=== PATIENT | female | born 1935 | race Caucasian/White ===

== ENCOUNTER 2016-10-03 09:52 | Day surgery (SDC) | payer MEDICARE ==
[2016-09-28 14:28] VITALS: BMI 28.4
[~2016-10-03 09:52] MED LIST: LACTATED RINGERS 1,000 ML IV SCH
[2016-10-03 10:34] VITALS: RESP 16; TEMP 97.1
[2016-10-03] MEDS ORDERED: LIDOCAINE 1% 20 ML VIAL (10MG/ML) FOR IV START INTRADERMA ONE (10:39)
[2016-10-03] MEDS ORDERED: PROPOFOL 10 MG/ML 20 ML VIAL IV ONE (10:46)
--- NOTE | 2016-10-03 11:02 | P.PCN ---
Date of Procedure: 10/03/16 Procedure(s) Performed: BRIEF HISTORY: Patient is a 81-year-old pleasant female, scheduled for an elective colonoscopy as a part of evaluation of change in bowel habits for the last 3 months duration. Lately has been having chronic constipation. Recently started on MiraLAX 1 scoop daily and symptoms are gradually improving. She denies any rectal bleeding. Last colonoscopy was more than 10 years ago. PROCEDURE PERFORMED: Colonoscopy with snare polypectomy PREOPERATIVE DIAGNOSIS: Change in bowel habits. IV sedation per Anesthesia. PROCEDURE: After informed consent was obtained, the patient, was brought into the endoscopy unit. IV conscious sedation was administered by Anesthesia under continuous monitoring. Digital rectal examination was normal. Initially the Olympus CF-160 flexible video colonoscope was then inserted in the rectum, gradually advanced into the cecum without any difficulty. Careful examination was performed as the scope was gradually being withdrawn. Ileocecal valve and the appendiceal orifice were visualized and appeared normal. Prep was excellent. Mucosa of the cecum, appeared normal. In the ascending colon there was a 1 cm polyp that was removed by snare polypectomy. The rest of the ascending colon, transverse colon, descending colon, sigmoid colon, and rectum appeared normal. Scattered sigmoid diverticulosis seen. Retroflexion was performed in the rectum and small internal hemorrhoids were seen. The patient tolerated the procedure well. IMPRESSION: 1 cm ascending colon polyp status post polypectomy. Scattered sigmoidal diverticulosis. Small internal hemorrhoids. RECOMMENDATIONS: Findings of this examination were discussed with the patient as well as a family. she was advised to follow with the biopsy results. If the biopsy shows a tubular adenoma she can have a repeat colonoscopy in 3 years.
[2016-10-03 11:27] VITALS: BP 133/80; PULSE 62
== END 2016-10-03 12:05 | disposition home or self-care (01) ==
LOC: ORWHC2ENDO 09:52
PROVIDERS: ATTEND Internal Medicine Gastroenterology
DX: D12.2 Benign neoplasm of ascending colon (principal); K57.30 Diverticulosis of large intestine without perforation or abscess without bleeding; K64.8 Other hemorrhoids; Z79.82 Long term (current) use of aspirin; Z79.899 Other long term (current) drug therapy; Z88.2 Allergy status to sulfonamides; Z88.8 Allergy status to other drugs, medicaments and biological substances
CPT/HCPCS: 88305; 45385; J2704

== ENCOUNTER → 2018-03-17 | Outpatient (CLI) | payer MEDICARE ==
[2018-03-17 09:33] LABS: Basophils % (A) 1 %; Eosinophils # (A) 0.2 k/uL (0-0.7); Eosinophils % (A) 4 %; HCT 43.3 % (34.0-46.0); HGB 13.6 gm/dL (11.4-16.0); Lymphocytes # (A) 1.9 k/uL (1.0-4.8); Lymphocytes % (A) 39 %; MCH 28.2 pg (25.0-35.0); MCHC 31.5 g/dL (31.0-37.0); MCV 89.5 fL (80.0-100.0); Mean Platelet Volume 7.4; Monocytes # (A) 0.3 k/uL (0-1.0); Monocytes % (A) 6 %; Neutrophils # (A) 2.4 k/uL (1.3-7.7); Neutrophils % (A) 48 %; Platelet Count 246 k/uL (150-450); RBC 4.83 m/uL (3.80-5.40); RDW 14.7 % (11.5-15.5)
[2018-03-17 09:54] LABS: Albumin 3.9 g/dL (3.5-5.0); Total Bilirubin 0.4 mg/dL (0.2-1.3); Total Protein 6.5 g/dL (6.3-8.2)
[2018-03-17 11:17] LABS: Erythrocyte Sedimentation Rate 5 mm/hr (0-20)
== END | disposition home or self-care (01) ==
LOC: LABWHC1 08:08
PROVIDERS: ATTEND Internal Medicine
DX: Z00.01 Encounter for general adult medical examination with abnormal findings (principal); M48.061 Spinal stenosis, lumbar region without neurogenic claudication; M81.0 Age-related osteoporosis without current pathological fracture; E55.9 Vitamin D deficiency, unspecified
CPT/HCPCS: 36415; 80053; 80061; 82306; 84443; 85025; 85652

== ENCOUNTER → 2018-03-24 | Outpatient (CLI) | payer MEDICARE ==
[~2018-03-24] MED LIST changes: +DENOSUMAB 60 MG/ML 1 ML SYRINGE SQ ONE; -LACTATED RINGERS 1,000 ML IV SCH
[2018-03-24 14:25] VITALS: BP 162/92; PULSE 75; RESP 20; TEMP 97.4
== END | disposition home or self-care (01) ==
LOC: PROCWHC3 14:08
PROVIDERS: ATTEND Internal Medicine
DX: M81.0 Age-related osteoporosis without current pathological fracture (principal)
CPT/HCPCS: 96372; J0897

== ENCOUNTER → 2018-10-14 | Outpatient (CLI) | payer MEDICARE ==
[2018-10-14 14:21] VITALS: BP 143/94; PULSE 67; RESP 16; TEMP 97.7
== END ==
LOC: PROCWHC3 13:53
PROVIDERS: ATTEND Internal Medicine
DX: M81.0 Age-related osteoporosis without current pathological fracture (principal)
CPT/HCPCS: 96372; J0897

== ENCOUNTER → 2019-04-20 | Outpatient (CLI) | payer MEDICARE ==
[2019-04-20 10:04] LABS: Basophils # (A) 0.1 k/uL (0-0.2); Basophils % (A) 1 %; Eosinophils # (A) 0.2 k/uL (0-0.7); Eosinophils % (A) 5 %; HCT 42.7 % (34.0-46.0); HGB 13.8 gm/dL (11.4-16.0); Lymphocytes # (A) 1.9 k/uL (1.0-4.8); Lymphocytes % (A) 37 %; MCH 28.8 pg (25.0-35.0); MCHC 32.4 g/dL (31.0-37.0); MCV 88.8 fL (80.0-100.0); Mean Platelet Volume 7.3; Monocytes # (A) 0.3 k/uL (0-1.0); Monocytes % (A) 6 %; Neutrophils # (A) 2.5 k/uL (1.3-7.7); Neutrophils % (A) 48 %; Platelet Count 253 k/uL (150-450); RDW 14.7 % (11.5-15.5); WBC 5.2 k/uL (3.8-10.6)
--- NOTE | 2019-04-20 12:00 | US ---
EXAMINATION TYPE: US venous doppler duplex LE LT DATE OF EXAM: 04/20/2019 9:09 AM COMPARISON: NONE CLINICAL HISTORY: 83-year-old female [id number] Acute Embolism and Thrombosis. SIDE PERFORMED: Left TECHNIQUE: The lower extremity deep venous system is examined utilizing real time linear array sonog lucretia with graded compression, doppler sonography and color-flow sonography. VESSELS IMAGED: External Iliac Vein (EIV) Common Femoral Vein Deep Femoral Vein Greater Saphenous Vein * Femoral Vein Popliteal Vein Small Saphenous Vein * Proximal Calf Veins (* superficial vessels) Left Leg: Negative for DVT IMPRESSION: No evidence for DVT within the left lower extremity imaged from the groin to the upper calf.
[2019-04-20 17:27] LABS: Albumin 4.3 g/dL (3.80-4.90); Albumin/Globulin Ratio 2.05 (1.60-3.17); Anion Gap 13.1 mmol/L (4.00-12.00); BUN/Creat Ratio 22.5 Ratio (12.00-20.00); Calcium 9.7 mg/dL (8.7-10.3); Carbon Dioxide 26.9 mmol/L (21.6-31.8); Chol/HDL Ratio 2.64; Globulin 2.1 g/dL (1.6-3.3); LDL Cholesterol,Calculated 117.8 mg/dL (0.0-131.0); Potassium 4.2 mmol/L (3.5-5.5); Total Bilirubin 0.6 mg/dL (0.2-1.2); Total Protein 6.4 g/dL (6.2-8.2); VLDL Calculation 20.2 mg/dL (5.00-40.00)
== END | disposition home or self-care (01) ==
LOC: LABWHC1 08:37
PROVIDERS: ATTEND Internal Medicine
DX: I82.409 Acute embolism and thrombosis of unspecified deep veins of unspecified lower extremity (principal); Z00.01 Encounter for general adult medical examination with abnormal findings; M81.0 Age-related osteoporosis without current pathological fracture
CPT/HCPCS: 36415; 80053; 80061; 82306; 85025

== ENCOUNTER → 2019-05-15 | Outpatient (CLI) | payer MEDICARE ==
[2019-05-15 11:33] VITALS: BP 143/83; PULSE 73; RESP 16; TEMP 98.1
== END | disposition home or self-care (01) ==
LOC: PROCWHC3 11:09
PROVIDERS: ATTEND Internal Medicine
DX: M81.0 Age-related osteoporosis without current pathological fracture (principal)
CPT/HCPCS: 96372; J0897

== ENCOUNTER → 2019-11-30 | Outpatient (CLI) | payer MEDICARE ==
[~2019-11-30] MED LIST changes: +DENOSUMAB 60 MG/ML 1 ML SYRINGE SQ NR; -DENOSUMAB 60 MG/ML 1 ML SYRINGE SQ ONE
[2019-11-30 14:08] VITALS: BP 144/75; PULSE 71; RESP 18; TEMP 97.3
== END | disposition home or self-care (01) ==
LOC: PROCWHC3 13:41
PROVIDERS: ATTEND Internal Medicine
DX: M81.0 Age-related osteoporosis without current pathological fracture (principal)
CPT/HCPCS: 96372; J0897

== ENCOUNTER → 2020-05-06 | Outpatient (CLI) | payer MEDICARE ==
[2020-05-06 09:24] LABS: Appearance,Urine Clear (Clear); Bilirubin,Urine Negative (Negative); Blood,Urine Small (Negative); Color,Urine Yellow; Glucose,Urine (UA) Negative (Negative); Ketones,Urine Negative (Negative); Leukocyte Esterase,Urine Moderate (Negative); Mucus,Urine Few /hpf; Nitrite,Urine Negative (Negative); Protein,Urine Negative (Negative); RBC,Urine 4 /hpf (0-5); Specific Gravity,Urine 1.018 (1.001-1.035); Urobilinogen,Urine <2.0 mg/dL (<2.0); WBC,Urine 3 /hpf (0-5)
[2020-05-06 09:39] LABS: Basophils % (A) 1 %; Eosinophils # (A) 0.2 k/uL (0-0.7); Eosinophils % (A) 4 %; HCT 45.3 % (34.0-46.0); HGB 14.5 gm/dL (11.4-16.0); Lymphocytes # (A) 1.8 k/uL (1.0-4.8); Lymphocytes % (A) 36 %; MCH 29.8 pg (25.0-35.0); MCHC 32.1 g/dL (31.0-37.0); MCV 93.1 fL (80.0-100.0); Mean Platelet Volume 7.5; Monocytes # (A) 0.3 k/uL (0-1.0); Monocytes % (A) 6 %; Neutrophils # (A) 2.4 k/uL (1.3-7.7); Neutrophils % (A) 50 %; Platelet Count 236 k/uL (150-450); RBC 4.86 m/uL (3.80-5.40); RDW 13.8 % (11.5-15.5); WBC 4.8 k/uL (3.8-10.6)
[2020-05-06 18:49] LABS: Erythrocyte Sedimentation Rate 7 mm/Hr (0-30)
[2020-05-06 19:31] LABS: African American GFR (CKD) 78.5 (60.0-200.0); Albumin/Globulin Ratio 1.9 (1.60-3.17); Anion Gap 7.8 mmol/L (4.00-12.00); Calcium 9.1 mg/dL (8.7-10.3); Carbon Dioxide 25.2 mmol/L (21.6-31.8); Chol/HDL Ratio 2.79; Globulin 2.1 g/dL (1.6-3.3); LDL Cholesterol,Calculated 111.2 mg/dL (0.0-131.0); Non-African American GFR(CKD) 67.7 (60.0-200.0); Potassium 4.2 mmol/L (3.5-5.5); Total Bilirubin 0.6 mg/dL (0.3-1.2); Total Protein 6.1 g/dL (6.2-8.2); VLDL Calculation 17.8 mg/dL (5.00-40.00)
== END | disposition home or self-care (01) ==
LOC: LABWHC1 08:28
PROVIDERS: ATTEND Internal Medicine
DX: Z00.01 Encounter for general adult medical examination with abnormal findings (principal); M19.90 Unspecified osteoarthritis, unspecified site; R32 Unspecified urinary incontinence; E55.9 Vitamin D deficiency, unspecified
CPT/HCPCS: 36415; 80053; 80061; 81001; 82306; 85025; 85652

== ENCOUNTER → 2020-06-02 | Outpatient (CLI) | payer MEDICARE ==
[~2020-06-02] MED LIST changes: -DENOSUMAB 60 MG/ML 1 ML SYRINGE SQ NR; +DENOSUMAB 60 MG/ML 1 ML SYRINGE SQ ONE
[2020-06-02 13:27] VITALS: BP 122/72; PULSE 76; RESP 16; TEMP 98
== END | disposition home or self-care (01) ==
LOC: PROCWHC3 12:55
PROVIDERS: ATTEND Internal Medicine
DX: M81.0 Age-related osteoporosis without current pathological fracture (principal)
CPT/HCPCS: 96372; J0897

== ENCOUNTER → 2020-12-05 | Outpatient (CLI) | payer MEDICARE ==
[~2020-12-05] MED LIST changes: +DENOSUMAB 60 MG/ML 1 ML SYRINGE SQ NR; -DENOSUMAB 60 MG/ML 1 ML SYRINGE SQ ONE
[2020-12-05 11:33] VITALS: BP 195/88; PULSE 76; RESP 16; TEMP 97.8
== END ==
LOC: PROCWHC3 11:23
PROVIDERS: ATTEND Family Medicine
DX: M81.0 Age-related osteoporosis without current pathological fracture (principal); Z87.891 Personal history of nicotine dependence
CPT/HCPCS: 96372; J0897

== ENCOUNTER → 2021-05-30 | Outpatient (CLI) | payer MEDICARE ==
[2021-05-30 19:50] LABS: HCT 45.8 % (37.2-46.3); HGB 14.1 g/dL (12.0-15.0); MCH 28.6 pg (27.0-32.0); MCHC 30.8 g/dL (32.0-37.0); MCV 92.9 fL (80.0-97.0); Mean Platelet Volume 10.9 fL (9.5-12.2); Platelet Count 291 X 10*3/uL (140-440); RBC 4.93 X 10*6/uL (4.10-5.20); RDW 14.1 % (11.5-14.5); WBC 6.16 X 10*3/uL (4.50-10.00)
[2021-05-30 20:10] LABS: African American GFR (CKD) 77.9 (60.0-200.0); Albumin 4.5 g/dL (3.8-4.9); Albumin/Globulin Ratio 1.96 (1.60-3.17); Anion Gap 13.2 mmol/L (4.00-12.00); Calcium 9.3 mg/dL (8.7-10.3); Carbon Dioxide 24.8 mmol/L (21.6-31.8); Chol/HDL Ratio 2.86 Ratio; Globulin 2.3 g/dL (1.6-3.3); HDL Cholesterol 72.8 mg/dL (40.00-60.00); LDL Cholesterol,Calculated 117.6 mg/dL (0.0-131.0); Non-African American GFR(CKD) 67.2 (60.0-200.0); Potassium 4.4 mmol/L (3.5-5.5); Total Bilirubin 0.5 mg/dL (0.30-1.20); Total Protein 6.8 g/dL (6.2-8.2); VLDL Calculation 17.6 mg/dL (5.00-40.00)
== END | disposition home or self-care (01) ==
LOC: LABWHC1 08:34
PROVIDERS: ATTEND Family Medicine
DX: Z00.01 Encounter for general adult medical examination with abnormal findings (principal)
CPT/HCPCS: 36415; 80053; 80061; 82306; 85027

== ENCOUNTER → 2021-06-12 | Outpatient (CLI) | payer MEDICARE ==
[~2021-06-12] MED LIST changes: -DENOSUMAB 60 MG/ML 1 ML SYRINGE SQ NR; +DENOSUMAB 60 MG/ML 1 ML SYRINGE SQ ONE
[2021-06-12 11:15] VITALS: BP 155/89; PULSE 76; RESP 16; TEMP 97.6
== END ==
LOC: PROCWHC3 10:39
PROVIDERS: ATTEND Family Medicine
DX: M81.0 Age-related osteoporosis without current pathological fracture (principal); Z88.2 Allergy status to sulfonamides; Z88.1 Allergy status to other antibiotic agents; Z87.891 Personal history of nicotine dependence
CPT/HCPCS: 96372; J0897

== ENCOUNTER → 2022-06-04 | Outpatient (CLI) | payer MEDICARE ==
[~2022-06-04] MED LIST changes: +DENOSUMAB 60 MG/ML 1 ML SYRINGE SQ NR; -DENOSUMAB 60 MG/ML 1 ML SYRINGE SQ ONE
[2022-06-04 09:44] VITALS: BP 171/88; PULSE 73; RESP 16; TEMP 97.6
== END ==
LOC: PROCWHC3 09:27
PROVIDERS: ATTEND Family Medicine
DX: M81.0 Age-related osteoporosis without current pathological fracture (principal); Z88.2 Allergy status to sulfonamides; Z87.891 Personal history of nicotine dependence; Z88.1 Allergy status to other antibiotic agents
CPT/HCPCS: 96372; J0897

== ENCOUNTER 2022-07-02 14:43 | Emergency (ER) | payer MEDICARE ==
[2022-07-02] MEDS ORDERED: DEXAMETHASONE SOD PHOSPHATE 10 MG/ML 1 ML VIAL IM STA (15:25)
[2022-07-02] MEDS ORDERED: KETOROLAC 15 MG/ML 1 ML VIAL IM STA (15:25)
--- NOTE | 2022-07-02 16:00 | ED ---
General Adult HPI - General Chief complaint: ENT Stated complaint: Sore throat, coughing Time Seen by Provider: 07/02/22 15:15 Source: patient Mode of arrival: ambulatory Limitations: no limitations - History of Present Illness Initial comments: Patient is an 87-year-old female presenting with chief complaint of sore throat. Patient states that she had mild sore throat 3 days ago, however last night it started worsening. She admits to odynophagia. No difficulty breathing. No cough, congestion, fever, chills, chest pain, weakness, sinus pain, ear pain, abdominal pain, nausea, vomiting. Patient took an aspirin which gave minimal relief. Patient states that otherwise she feels well. - Related Data Home Medications Medication Instructions Recorded Confirmed Calcium Citrate 1 tab PO DAILY 11/30/19 06/12/21 Mirabegron [Myrbetriq] 1 tab PO 06/04/22 Previous Rx's Medication Instructions Recorded methylPREDNISolone Dose Pack 4 mg PO DIRECTED #1 packet 07/02/22 [Medrol Dose Pack] Allergies Allergy/AdvReac Type Severity Reaction Status Date / Time rofecoxib [From Vioxx] Allergy Rash/Hives Verified 06/04/22 09:40 sulfamethoxazole Allergy shakes Verified 06/04/22 09:40 [From Bactrim] tetracycline [Tetracycline] Allergy shakes Verified 06/04/22 09:40 trimethoprim [From Bactrim] Allergy shakes Verified 06/04/22 09:40 Review of Systems ROS Statement: Those systems with pertinent positive or pertinent negative responses have been documented in the HPI. ROS Other: All systems not noted in ROS Statement are negative. Past Medical History Past Medical History: Asthma, Eye Disorder, Hyperlipidemia, Osteoarthritis (OA) Additional Past Medical History / Comment(s): spinal stenosis, glaucoma, constipation, change in bowel movement, urinary incontinence History of Any Multi-Drug Resistant Organisms: None Reported Past Surgical History: Breast Surgery, Joint Replacement Additional Past Surgical History / Comment(s): D&C, vaginal polyp removed, (benign) breast lumpectomy, rt hip replacement. left knee surgery. cataracts removed. Past Anesthesia/Blood Transfusion Reactions: No Reported Reaction Past Psychological History: No Psychological Hx Reported Smoking Status: Never smoker - Past Family History Mother Family Medical History: No Reported History General Exam Limitations: no limitations General appearance: alert, in no apparent distress Head exam: Present: atraumatic, normocephalic, normal inspection Eye exam: Present: normal appearance Expanded Throat exam: tonsillar erythema, other (Slightly swollen uvula). negative: tonsillar exudate Neck exam: Present: normal inspection, full ROM Respiratory exam: Present: normal lung sounds bilaterally. Absent: respiratory distress, wheezes, rales, rhonchi, stridor Cardiovascular Exam: Present: regular rate, normal rhythm, normal heart sounds. Absent: systolic murmur, diastolic murmur, rubs, gallop, clicks Neurological exam: Present: alert, oriented X3, CN II-XII intact Psychiatric exam: Present: normal affect, normal mood Skin exam: Present: warm, dry, intact, normal color. Absent: rash Course Vital Signs 07/02/22 07/02/22 15:10 17:32 Temperature 98.7 F 98.0 F Pulse Rate 74 64 Respiratory 20 16 Rate Blood Pressure 160/73 148/71 O2 Sat by Pulse 97 99 Oximetry Medical Decision Making - Medical Decision Making Patient is an 87-year-old female presenting with chief complaint of sore throat. Pain started last night is worse today. No difficulty breathing or swallowing. On examination there is some redness and mild swelling to the right side and soft palate, no midline deviation or evidence of encroachment on the airway. Mild swelling of the uvula. Heart and lungs are clear to auscultation. Patient is negative for influenza, Covid, and group A beta-hemolytic strep. Patient is given pain medication and steroid here in the ER, she reports some improvement. She is prescribed Medrol Dosepak for home. Follow-up with PCP. Report back to ER with any new or worsening symptoms. Discussed return parameters and answered all questions. Patient conveyed verbal understanding and agreed to the plan. I discussed this case in detail with my attending Dr. Salazar - Lab Data Lab Results 07/02/22 07/02/22 07/02/22 Range/Units 15:16 15:38 15:38 Coronavirus (PCR) Not Detected (Not Detectd) Influenza Type A RNA Not Detected (Not Detectd) Influenza Type B (PCR) Not Detected (Not Detectd) Group A Strep (PCR) NOT DETECTED (Not Detectd) Disposition Clinical Impression: Uvulitis, Pharyngitis Disposition: HOME SELF-CARE Condition: Good Instructions (If sedation given, give patient instructions): Pharyngitis (ED), Uvulitis (ED) Additional Instructions: Follow-up with PCP. Report back to ER with any new or worsening symptoms. Take medication as prescribed. Prescriptions: methylPREDNISolone Dose Pack [Medrol Dose Pack] 4 mg PO DIRECTED #1 packet Is patient prescribed a controlled substance at d/c from ED?: No Referrals: Timoteo Daigle MD [Primary Care Provider] - 1-2 days Time of Disposition: 17:33
[2022-07-02 17:33] VITALS: BP 148/71; PULSE 64; RESP 16; TEMP 98
== END 2022-07-02 17:36 | disposition home or self-care (01) ==
LOC: EC 14:43
DX: K12.2 Cellulitis and abscess of mouth (principal); J02.9 Acute pharyngitis, unspecified; J45.909 Unspecified asthma, uncomplicated; Z88.2 Allergy status to sulfonamides; Z88.1 Allergy status to other antibiotic agents; Z20.822 Contact with and (suspected) exposure to COVID-19
CPT/HCPCS: 87651; 87502; 87635; 99283; 96372 ×2; J1100; J1885

== ENCOUNTER → 2023-02-04 | Outpatient (CLI) | payer MEDICARE ==
[2023-02-04 12:24] VITALS: BP 146/86; PULSE 64; RESP 16; TEMP 98
== END ==
LOC: PROCWHC3 11:48
PROVIDERS: ATTEND Physician Assistant Medical
DX: M81.0 Age-related osteoporosis without current pathological fracture (principal)
CPT/HCPCS: 96372; J0897

== ENCOUNTER → 2024-04-21 | Outpatient (CLI) | payer MEDICARE ==
[2024-04-21] MEDS: DENOSUMAB 60 MG/ML 1 ML SYRINGE SQ NR (13:40)
[2024-04-21 13:43] VITALS: BP 153/73; PULSE 67; RESP 16; TEMP 98.7
== END ==
LOC: PROCWHC3 13:10
PROVIDERS: ATTEND Family Medicine
DX: M81.0 Age-related osteoporosis without current pathological fracture (principal)
CPT/HCPCS: 96372; J0897

== ENCOUNTER 2024-10-20 13:54 | Outpatient (CLI) | payer MEDICARE ==
[2024-10-20] MEDS: DENOSUMAB 60 MG/ML 1 ML SYRINGE SQ NR (14:00)
[2024-10-20 14:04] VITALS: BP 176/66; PULSE 75; RESP 16; TEMP 96.8
== END 2024-10-21 09:09 | disposition home or self-care (01) ==
LOC: PROCWHC3 13:54
PROVIDERS: ATTEND Family Medicine
DX: M81.0 Age-related osteoporosis without current pathological fracture (principal)
CPT/HCPCS: 96372; J0897

== ENCOUNTER 2025-01-23 14:02 | Emergency (ER) | payer MEDICARE ==
[2025-01-23 14:09] VITALS: TEMP 97.5
[2025-01-23] MEDS: HYDROmorphone 0.5 MG/0.5 ML SYRINGE IVP STA (14:35)
[2025-01-23] MEDS: METOCLOPRAMIDE 5 MG/ML 2 ML VIAL IVP STA (14:36)
[2025-01-23] MEDS: SODIUM CHLORIDE 0.9% 1,000 ML IV ONE (14:37)
--- NOTE | 2025-01-23 15:17 | XR ---
EXAMINATION TYPE: XR Hip RT and AP Pelvis DATE OF EXAM: 01/23/2025 2:52 PM COMPARISON: None. CLINICAL INDICATION: Female, 89 years old with history of pain; PHH, pain TECHNIQUE: XR Hip RT and AP Pelvis; hip was examined in the frontal and lateral projections and a AP pelvis. FINDINGS/IMPRESSION: Right hip arthroplasty with superior dislocation. No evidence of fracture. [facility], , 01/23/2025 3:15 PM
[2025-01-23] MEDS: PROPOFOL 10 MG/ML 20 ML VIAL IV ONE ×2 (16:15→17:48)
--- NOTE | 2025-01-23 17:03 | XR ---
EXAMINATION TYPE: XR Hip Limited RT DATE OF EXAM: 01/23/2025 4:42 PM COMPARISON: Same day CLINICAL INDICATION: Female, 89 years old with history of reduction; PHH, pain TECHNIQUE: XR Hip Limited RT; Frontal view FINDINGS: Post arthroplasty changes, hardware is intact, alignment is appropriate. No evidence of fra cture. No evidence of any acute osseous pathology or joint dislocation. IMPRESSION: Hip arthroplasty with hardware intact and in appropriate alignment. No acute fracture. [facility], , 01/23/2025 5:01 PM
--- NOTE | 2025-01-23 17:04 | ED ---
Fall HPI - General Chief Complaint: Fall Stated Complaint: Fall Time Seen by Provider: 01/23/25 14:11 Source: EMS Mode of arrival: EMS - History of Present Illness Initial Comments: 89-year-old female presents emergency department with right hip pain. States that she was outside gardening. Her right leg gave out on her and she fell to the ground. 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 States that it has given out on her multiple times but typically she is able to get it back in. Today it caused her to fall and she has been unable to move her right leg. EMS did give the patient 100 mcg of fentanyl. Patient is placed in a c-collar even though she denies head injury or neck pain. No back pain. Patient does not take any blood thinners. Denies any numbness, tingling or weakness in her legs. No other alleviating, precipitating or modifying factors - Related Data Home Medications Medication Instructions Recorded Confirmed Calcium Citrate 1 tab PO DAILY 11/30/19 10/20/24 Allergies Allergy/AdvReac Type Severity Reaction Status Date / Time rofecoxib [From Vioxx] Allergy Rash/Hives Verified 01/23/25 14:10 sulfamethoxazole Allergy shakes Verified 01/23/25 14:10 [From Bactrim] tetracycline [Tetracycline] Allergy shakes Verified 01/23/25 14:10 trimethoprim [From Bactrim] Allergy shakes Verified 01/23/25 14:10 Review of Systems ROS Statement: Those systems with pertinent positive or pertinent negative responses have been documented in the HPI. ROS Other: All systems not noted in ROS Statement are negative. Past Medical History Past Medical History: Asthma, Eye Disorder, Hyperlipidemia, Osteoarthritis (OA) Additional Past Medical History / Comment(s): spinal stenosis, glaucoma, constipation, change in bowel movement, urinary incontinence. osteoporosis. History of Any Multi-Drug Resistant Organisms: None Reported Past Surgical History: Breast Surgery, Joint Replacement Additional Past Surgical History / Comment(s): D&C, vaginal polyp removed, (benign) breast lumpectomy, rt hip replacement. left knee surgery. cataracts removed. Past Anesthesia/Blood Transfusion Reactions: No Reported Reaction Past Psychological History: No Psychological Hx Reported Smoking Status: Former smoker - Past Family History Mother Family Medical History: No Reported History General Exam General appearance: alert, in no apparent distress Head exam: Present: atraumatic, normocephalic, normal inspection Eye exam: Present: normal appearance, PERRL, EOMI. Absent: scleral icterus, conjunctival injection, periorbital swelling ENT exam: Present: normal exam, mucous membranes moist Neck exam: Present: normal inspection. Absent: tenderness, meningismus, lymphadenopathy Respiratory exam: Present: normal lung sounds bilaterally. Absent: respiratory distress, wheezes, rales, rhonchi, stridor Cardiovascular Exam: Present: regular rate, normal rhythm, normal heart sounds. Absent: systolic murmur, diastolic murmur, rubs, gallop, clicks GI/Abdominal exam: Present: soft, normal bowel sounds. Absent: distended, tenderness, guarding, rebound, rigid Extremities exam: Present: full ROM, tenderness (To palpation of the right hip which is shortened), normal capillary refill. Absent: pedal edema, joint swelling, calf tenderness Back exam: Present: normal inspection Neurological exam: Present: alert, oriented X3, CN II-XII intact Psychiatric exam: Present: normal affect, normal mood Skin exam: Present: warm, dry, intact, normal color. Absent: rash Course Vital Signs 01/23/25 01/23/25 01/23/25 14:04 16:15 16:20 Temperature 97.5 F L Pulse Rate 70 77 74 Respiratory 16 15 19 Rate Blood Pressure 166/76 165/84 155/70 O2 Sat by Pulse 96 100 100 Oximetry 01/23/25 01/23/25 01/23/25 16:25 16:27 16:45 Temperature Pulse Rate 74 75 66 Respiratory 19 10 L 14 Rate Blood Pressure 140/78 148/77 128/68 O2 Sat by Pulse 99 100 100 Oximetry 01/23/25 01/23/25 01/23/25 17:00 17:30 18:04 Temperature Pulse Rate 67 77 67 Respiratory 18 16 16 Rate Blood Pressure 123/59 134/69 134/64 O2 Sat by Pulse 96 100 98 Oximetry Procedures - [place] Protocol (Time Out) Procedure Performed:: Reduction of right prostetic hip Performing Provider: Tracy Kapoor Nurse: Javad Foster Respiratory Therapist: Amy Almonte Patient Identification (2 identifiers required): Chart, Verbal, Arm Band, Name, Birthdate Patient/Legal Purchase Price Analyst has Confirmed: Identity, Site, Procedure, Consent Site Marked: Not Applicable - Procedural Sedation *Procedural Sedation Start Time: 16:15 *Procedural Sedation Stop Time: 15:45 *Risks,benefits, and alternative therapies discussed?: Yes *Patient indicates understanding of risk/benefit discussion?: Yes *Indications: fracture/dislocation reduction *Previous Adverse Reaction to Anesthesia/Sedation?: No * Testing Complete?: No Reason Test Not Complete:: Age > 60 *ASA Class: I *Mallampati Airway Score: 1 *Time of Last PO Intake: 08:00 Preparation: synoptic meteorologist applied, pulse oximeter, supplemental O2 applied, suction/airway equipment at bedside IV Propofol Dose (mgs): 130 Complications: none Patient Tolerated Procedure: well, no complications Medical Decision Making - Medical Decision Making Was pt. sent in by a medical professional or institution (, PA, JEEP MECHANIC, urgent care, hospital, or [facility]...) When possible be specific @ -No Did you speak to anyone other than the patient for history (EMS, parent, family, police, friend...)? What history was obtained from this source @ -Spoke with EMS for history Did you review nursing and triage notes (agree or disagree)? Why? @ -I reviewed and agree with nursing and triage notes Were old charts reviewed (outside hosp., previous admission, EMS record, old EKG, old radiological studies, urgent care reports/EKG's, [facility] records)? Report findings @ -No old charts were reviewed Differential Diagnosis (chest pain, altered mental status, abdominal pain women, abdominal pain men, vaginal bleeding, weakness, fever, dyspnea, syncope, headache, dizziness, GI bleed, back pain, seizure, CVA, palpatations, mental health, musculoskeletal)? @Differential Musculoskeletal Muscular strain, contusion, ligament sprain, fracture, arthritis, septic arthritis, bursitis, cellulitis, muscle spasm, nerve compression, DVT, arterial occlusion, herpes zoster, electrolyte abnormality, tumor.... This is not meant to be in all inclusive list EKG interpreted by me (3pts min.). @ -Not done X-rays interpreted by me (1pt min.). @ -Yes which demonstrates prosthetic hip dislocation CT interpreted by me (1pt min.). @ -None done U/S interpreted by me (1pt. min.). @ -None done What testing was considered but not performed or refused? (CT, X-rays, U/S, labs)? Why? @ -None What meds were considered but not given or refused? Why? @ -None Did you discuss the management of the patient with other professionals (professionals i.e. , PA, JEEP MECHANIC, lab, RT, psych nurse, social work manager, hvac lead, teacher, transport corps officer, director of casework department)? Give summary @ -No Was smoking cessation discussed for >3mins.? @ -No Was critical care preformed (if so, how long)? @ -No Were there social determinants of health that impacted care today? How? (Homelessness, low income, unemployed, alcoholism, drug addiction, transportation, low edu. Level, literacy, decrease access to med. care, retirement, rehab)? @ -No Was there de-escalation of care discussed even if they declined (Discuss DNR or withdrawal of care, Hospice)? DNR status @ -No What co-morbidities impacted this encounter? (DM, HTN, Smoking, COPD, CAD, Cancer, CVA, ARF, Chemo, Hep., AIDS, mental health diagnosis, sleep apnea, morbid obesity)? @ -None Was patient admitted / discharged? Hospital course, mention meds given and route, prescriptions, significant lab abnormalities, going to OR and other pertinent info. @ -Upon arrival patient seen and evaluated in trauma 1. Thorough history and physical exam was performed. X-ray was performed which demonstrates right hip prosthetic dislocation. Patient is sedated and hip is reduced. Post procedural x-ray demonstrates reapproximation of the hip. Patient does awaken from sedation. She returns to her baseline. She will be discharged home at this time. Instructed to follow-up with orthopedics. Return for any new or worsening symptoms. Patient discharged in stable condition. Son is driving her home and she is aware she is to not drive for the next 24 hours Undiagnosed new problem with uncertain prognosis? @ -No Drug Therapy requiring intensive monitoring for toxicity (Heparin, Nitro, Insulin, Cardizem)? @ -No Were any procedures done? @ -Procedural sedation, right hip prosthetic dislocation reduction Diagnosis/symptom? @ -Acute fall, acute right prosthetic hip dislocation Acute, or Chronic, or Acute on Chronic? @ -Acute Uncomplicated (without systemic symptoms) or Complicated (systemic symptoms)? @ -Complicated Side effects of treatment? @ -No Exacerbation, Progression, or Severe Exacerbation? @ -No Poses a threat to life or bodily function? How? (Chest pain, [place], [place], pneumonia, PE, COPD, DKA, ARF, appy, cholecystitis, CVA, Diverticulitis, Homicidal, Suicidal, threat to staff... and all critical care pts) @ -No Disposition Clinical Impression: Hip dislocation, right, Fall Disposition: HOME SELF-CARE Condition: Stable Instructions (If sedation given, give patient instructions): Moderate Sedation (ED), Hip Dislocation (ED) Additional Instructions: Please follow-up with your doctor in 2 to 4 days. See the orthopedic doctor if the hip gives you any more trouble. Return for any new or worsening symptoms Is patient prescribed a controlled substance at d/c from ED?: No Referrals: Timoteo Daigle MD [Primary Care Provider] - 1-2 days Shiv Wood MD [Medical Doctor] - 1-2 days Time of Disposition: 17:04
[2025-01-23 17:51] VITALS: RESP 16
[2025-01-23 18:05] VITALS: BP 134/64; PULSE 67
== END 2025-01-23 18:05 | disposition home or self-care (01) ==
LOC: EC 14:02
DX: T84.020A Dislocation of internal right hip prosthesis, initial encounter (principal); Z87.891 Personal history of nicotine dependence; Z88.1 Allergy status to other antibiotic agents; Z88.2 Allergy status to sulfonamides; Z96.641 Presence of right artificial hip joint; Z88.8 Allergy status to other drugs, medicaments and biological substances; W19.XXXA Unspecified fall, initial encounter
CPT/HCPCS: 73501; 73502; 99284; 96374; 96375; 96361; 27265; 99152; 99153; J2765; J2704; J1171